=== PATIENT | male | born 1940 | race Caucasian/White ===

== ENCOUNTER 2016-11-07 02:31 | Emergency (ER) | payer MEDICARE ==
[2016-11-07 02:37] VITALS: TEMP 97.4
--- NOTE | 2016-11-07 02:49 | ED ---
Back Pain HPI - General Chief Complaint: Back Pain/Injury Stated Complaint: sciatica Time Seen by Provider: 11/07/16 02:41 Source: patient, RN notes reviewed Mode of arrival: ambulatory Limitations: no limitations - History of Present Illness Initial Comments: This a 75-year-old male presents emergency Department with chief complaint of low back pain. Patient states started a few days ago with no injury. Patient states his pain from his right low back and buttocks region that radiates down to his right ankle. He states he has no associated paresthesias or saddle anesthesias. Patient states pain is slightly worse with movement. Patient states he has no back history including injuries or surgeries. Patient states that he has no abdominal pain denies any nausea, vomiting, diarrhea or constipation. He also denies any bowel, bladder incontinence or retention. Patient has a history of diabetes, bladder cancer in which she states she is in remission. Patient states she has regular yearly follow-ups with no recurrence. Patient denies any fever, chills, dysuria, hematuria, history DVT, discoloration of his leg, leg swelling. - Related Data Home Medications Medication Instructions Recorded Confirmed Aspirin 81 mg PO DAILY 10/07/13 10/08/13 Timolol 0.5% Ophth Soln [Timoptic] 1 drop BOTH EYES BID 10/07/13 10/08/13 metFORMIN HCL [Glucophage Xr] 1,000 mg PO DAILY 10/07/13 10/08/13 Previous Rx's Medication Instructions Recorded Cyclobenzaprine [Flexeril] 10 mg PO TID PRN #15 tab 11/07/16 Hydrocodone/Acetaminophen [Upton 1 tab PO Q6HR PRN #20 tab 11/07/16 5-325] Allergies Allergy/AdvReac Type Severity Reaction Status Date / Time No Known Allergies Allergy Verified 11/07/16 02:37 Review of Systems ROS Statement: Those systems with pertinent positive or pertinent negative responses have been documented in the HPI. ROS Other: All systems not noted in ROS Statement are negative. Past Medical History Past Medical History: Cancer, Diabetes Mellitus Additional Past Medical History / Comment(s): BLADDER CANCER,DIVERTICULITIS History of Any Multi-Drug Resistant Organisms: None Reported Past Surgical History: No Surgical Hx Reported Additional Past Surgical History / Comment(s): COLONOSCOPY Past Anesthesia/Blood Transfusion Reactions: No Reported Reaction Past Psychological History: No Psychological Hx Reported Smoking Status: Former smoker General Exam Limitations: no limitations General appearance: alert, in no apparent distress Respiratory exam: Present: normal lung sounds bilaterally. Absent: respiratory distress, wheezes, rales, rhonchi, stridor Cardiovascular Exam: Present: regular rate, normal rhythm, normal heart sounds. Absent: systolic murmur, diastolic murmur, rubs, gallop, clicks GI/Abdominal exam: Present: soft, normal bowel sounds. Absent: distended, tenderness, guarding, rebound, rigid Extremities exam: Present: normal inspection, full ROM, normal capillary refill , other (Lower extremity strength equal bilaterally, neurovascular intact equal color Equal warmth there is no lower extremity swelling noted there is no tenderness with palpation the lower extremities). Absent: tenderness, pedal edema, joint swelling, calf tenderness Back exam: Present: normal inspection, full ROM (Mild discomfort with range of motion), tenderness (Right low lumbar region), paraspinal tenderness, other ( Pain with right straight leg raise). Absent: vertebral tenderness Neurological exam: Present: alert, oriented X3, CN II-XII intact, reflexes normal. Absent: motor sensory deficit Skin exam: Present: warm, dry, intact, normal color. Absent: rash Course Vital Signs 11/07/16 02:32 Temperature 97.4 F L Pulse Rate 89 Respiratory 20 Rate Blood Pressure 176/80 O2 Sat by Pulse 96 Oximetry Medical Decision Making - Medical Decision Making 75-year-old male presented emergency and for low back pain, right leg pain. Patient has symptoms of lumbar radiculopathy with no red flag symptoms. Patient 's lumbar x-ray does not reveal any osseus lesions though does show some anterior listhesis L4-L5 with degenerative changes. Patient symptoms are consistent for this. Patient will follow-up with Dr. Russo orthopedics surgeon. Patient will be given Flexeril and pain medication. We did discuss steroids so he is diabetic and will hold off at this time. Disposition Clinical Impression: Lumbar radiculopathy, acute Disposition: HOME SELF-CARE Condition: Stable Instructions: Lumbar Radiculopathy (ED), Lower Back Exercises (ED) Additional Instructions: Please return to the Emergency Department if symptoms worsen or any other concerns. Prescriptions: Cyclobenzaprine [Flexeril] 10 mg PO TID PRN #15 tab PRN Reason: Muscle Spasm Hydrocodone/Acetaminophen [Upton 5-325] 1 tab PO Q6HR PRN #20 tab PRN Reason: Pain Referrals: Tamir Snider DO [Primary Care Provider] - 1-2 days Lenny Timmons DO [Doctor of Osteopathic Medicine] - 1-2 days Time of Disposition: 03:43
--- NOTE | 2016-11-07 03:36 | XR ---
EXAM: XR Lumbar Spine, 4 or 5 Views CLINICAL HISTORY: Reason: Low back pain with pain all the way down the right leg to the right ankle. No injury. TECHNIQUE: Frontal, lateral and oblique views of the lumbar spine. COMPARISON: None FINDINGS: Bones/disc levels: No acute fracture or traumatic malalignment identified. Minimal is a degenerative grade 1 anterolisthesis of L4 on L5. Multilevel degenerative changes of the lumbar spine with multiple levels of bilateral neural foraminal stenoses. Soft tissues: Abdominal aortic calcifications. IMPRESSION: No acute fracture or traumatic malalignment identified. Multilevel degenerative changes of the lumbar spine with minimal grade 1 anterolisthesis of L4 on L5.
[2016-11-07] MEDS ORDERED: ACET/COD 300 MG/30 MG STARTER PACK 6 TAB BTL PO STA (03:43)
[2016-11-07] MEDS ORDERED: CYCLOBENZAPRINE 10MG STARTER 3 TAB BTL PO STA (03:43)
[2016-11-07 03:58] VITALS: BP 159/72; PULSE 79; RESP 16
== END 2016-11-07 03:58 | disposition home or self-care (01) ==
LOC: EC 02:31
DX: M47.26 Other spondylosis with radiculopathy, lumbar region (principal); M43.16 Spondylolisthesis, lumbar region; E11.9 Type 2 diabetes mellitus without complications; Z87.891 Personal history of nicotine dependence; Z79.82 Long term (current) use of aspirin; Z79.84 Long term (current) use of oral hypoglycemic drugs; Z79.899 Other long term (current) drug therapy
CPT/HCPCS: 72110; 99283

== ENCOUNTER → 2017-03-29 | Outpatient (CLI) | payer MEDICARE | END | disposition home or self-care (01) | LOC: LABPAT 12:34 | PROVIDERS: ATTEND Orthopaedic Surgery | DX: Z01.812 Encounter for preprocedural laboratory examination (principal) | CPT/HCPCS: 87070 ==

== ENCOUNTER 2017-04-01 05:59 | Inpatient (IN) | payer MEDICARE ==
[2017-03-21 12:35] VITALS: BMI 34.4
--- NOTE | 2017-03-31 14:36 | HP ---
HISTORY AND PHYSICAL REASON FOR ADMISSION: Surgery is scheduled for 04/01/2017 HISTORY OF PRESENT ILLNESS: Olvin Anaya is a 76-year-old patient seen with symptomatic left knee osteoarthritis. After having treatment options discussed, he elected to proceed with left total knee arthroplasty. Consent regarding the procedure was obtained. Medical clearance was provided Dr. Tamir Snider. PAST MEDICAL HISTORY: Insulin-dependent diabetes, hypertension, osteoarthritis. PAST SURGICAL HISTORY: Noncontributory. MEDICATIONS: Novolin, insulin, metformin, tramadol. ALLERGIES: TYLENOL 3 which causes vomiting. SOCIAL HISTORY: Patient denies current tobacco use. PHYSICAL EXAMINATION: Evaluation of the left knee range of motion is -3/4 to 115 degrees. There is tenderness along the medial joint line crepitus along the medial patellofemoral compartments with range of motion. Pain with patellofemoral compression. Ligaments are stable. Hip rotation is without pain. Distal neurovascular exam is intact. RADIOGRAPHS: Radiographs of the left knee reveal severe medial and moderate patellofemoral compartment osteoarthritis. IMPRESSION: 1. Left left knee osteoarthritis. 2. Insulin-dependent diabetes. 3. Hypertension. PLAN: Left total knee arthroplasty Surgery is scheduled for 04/01/2017. MMODL / IJN: [id number] /
[~2017-04-01 05:59] MED LIST: ACETAMINOPHEN TAB 500 MG TAB PO ONE; HYDROmorphone 0.5 MG/0.5 ML SYRINGE IVP PRN; LIDOCAINE 1% 20 ML VIAL (10MG/ML) FOR IV START INTRADERMA PRN; MELOXICAM 7.5 MG TAB PO ONE; MIDAZOLAM 2 MG/2 ML VIAL IV PRN; ONDANSETRON 4 MG/2 ML VIAL IVP ONE; TRANEXAMIC ACID 1,000 MG in SODIUM CHLORIDE 0.9% 100 ML IVPB ONE; ceFAZolin IN SWFI 2 GM/20 ML SYRINGE IVP ONE; fentaNYL (PF) 50 MCG/ML 20 ML VIAL IVP PRN
[2017-04-01 06:32] VITALS: RESP 16
[2017-04-01 06:34] LABS: Glucose,Whole Blood 144 mg/dL (75-99)
[2017-04-01] MEDS: LACTATED RINGERS 1,000 ML IV SCH (06:34)
[2017-04-01] MEDS ORDERED: DEXAMETHASONE SOD PHOS (MDV) 100 MG/10 ML VIAL IV ONE (06:34)
[2017-04-01] MEDS ORDERED: fentaNYL (PF) 50 MCG/ML 2 ML AMP ONE (07:30)
[2017-04-01] MEDS ORDERED: PROPOFOL 10 MG/ML 20 ML VIAL IV ONE (07:30)
[2017-04-01] MEDS ORDERED: TRANEXAMIC ACID 1,000 MG/10 ML VIAL ONE (07:30)
[2017-04-01] MEDS ORDERED: LIDOCAINE 1% INJ 10MG/ML (20 ML MDV) ONE (07:30)
[2017-04-01] MEDS ORDERED: SODIUM CHLORIDE 0.9% 100 ML BAG ONE (07:30)
[2017-04-01] MEDS ORDERED: PHENYLEPHRINE-0.9% NACL SYG 1 MG/10 ML SYRINGE ONE (07:30)
[2017-04-01] MEDS ORDERED: ROPIVACAINE 246.25 MG, EPINEPHrine 0.5 MG, KETOROLAC 30 MG, cloNIDine HCL/PF 80 MCG, WA... MISCELLANE ONE ×5 (07:32)
[2017-04-01] MEDS ORDERED: ROPIVACAINE 1,100 MG, SODIUM CHLORIDE 0.9% 330 ML MISCELLANE PRN ×2 (07:51)
--- NOTE | 2017-04-01 07:52 | P.ONQ ---
Anesthesiology Proc Note - PNB - Peripheral Nerve Block Performed Left Adductor Canal Infusion Time Out Performed: Yes Procedure Start Time: 07:10 Indication: Acute Post-Operative Pain, Analgesia Specifically requested for management of pain by DrWillem: Harish Elder Sedation Type: Sedate with meaningful contact maintained Preparation: Sterile Prep Position: Supine Catheter Depth at Skin (cm): 6 Catheter: Indwelling Needle Types: Other (see comment) (Pajunk) Needle Size: 100mm (4") Needle Gauge: 18 Technique: Ultrasound Injectate: 0.5% Ropivacaine (see comment for volume) (20cc) Blood Aspirated: No Pain Paresthesia on Injection Noted: No Resistance on Injection: Normal Events: Uneventful and Well Tolerated
[2017-04-01] MEDS ORDERED: LACTATED RINGERS 1,000 ML IV ONE (08:04)
[2017-04-01] MEDS ORDERED: ceFAZolin 3,000 MG in SODIUM CHLORIDE 0.9% IRRIGATIO 3,000 ML IRRIGATION ONE (08:05)
--- NOTE | 2017-04-01 09:29 | P.OP ---
Date of Procedure: 04/01/17 Preoperative Diagnosis: Left knee osteoarthritis Postoperative Diagnosis: Left knee osteoarthritis Procedure(s) Performed: Left total knee arthroplasty Implants: 1. Briana persona size 9 left standard cemented cruciate-retaining femur 2. Briana persona size G left cemented tibia 3. Briana persona 10 mm medial congruent polyethylene tibial insert 4. Briana persona 35 mm all polyethylene cemented patella Anesthesia: regional (Adductor canal catheter), local, spinal Surgeon: Harish Elder Pipe Stem Sawyer #1: Ramakrishna Quintanilla Estimated Blood Loss (ml): 50 Pathology: other (Bone) Condition: stable Disposition: PACU Indications for Procedure: 76-year-old patient seen with progressive symptomatic left knee osteoarthritis. After treatment options were discussed, he elected to proceed with total knee arthroplasty. Operative Findings: See description of procedure Description of Procedure: Patient was taken to the operative suite after having an adductor canal catheter placed by the department of anesthesia. Patient underwent a spinal anesthetic by the department of anesthesia. Patient was given preoperative IV intake antibiotics and TXA. A well-padded tourniquet was placed about the [] lower extremity. The lower extremity was then prepped and draped in the normal sterile orthopedic fashion. The extremity was elevated, a tourniquet was insufflated to 350. A standard anterior incision was made sharply through skin. Dissection was taken down through the subcutaneous soft tissues down to the extensor mechanism. A medial arthrotomy was performed, patella was everted and knee was flexed. There was advanced osteoarthritis noted. A proximal tibial cutting guide was positioned. Proximal tibial cut was made. A distal intramedullary femoral cutting guide was positioned, distal femoral cut made. We placed the appropriate sizing guide and selected the appropriate size. A distal 4-in-1 femoral cutting block was positioned, distal femoral cuts were made. We now placed a trial femoral component into position, along with an appropriate size tibial tray and insert. We now took the knee through range of motion and had full extension good flexion and good overall soft tissue balance noted. The patella was everted and a flush cut made with patellar quad tendon. We templated the patella, appropriate drill holes were made. An appropriate trial patella was positioned, knee was taken through full range of motion with the patella tracking very nicely. The trial patella was removed. Drill holes were made through the femoral component. All trial components were removed after marking off the appropriate rotation of the tibia. Retractors were now positioned along the proximal tibia. An appropriate keel punch was made with the appropriate size tibial guide. At this point appropriate size implants were chosen and opened. The joint was irrigated copiously with pulse lavage mechanical irrigation. The posterior capsule was infiltrated local analgesic. We mixed antibiotic methylmethacrylate. Once the methyl methacrylate was ready , the tibial component was cemented into place removing any excess methylmethacrylate. The femoral component was cemented into place removing the removing any excess methylmethacrylate. We then inserted the appropriate size polyethylene tibial insert. We made sure that it was locked into position. We took the knee into full extension, and then back in a flexion making sure we had removed any excess methylmethacrylate. The patellar component was then cemented down and secured with clamp. Excess methylmethacrylate removed. We kept the knee in full extension, patellar clamp in position until methylmethacrylate had hardened. Once it had hardened the patellar clamp was removed. The knee was taken through full range of motion. The patella tracked nicely. There was good soft tissue balancing. The tourniquet was now released. Additional hemostasis was achieved via electrocautery. A second gram of TXA was given. The wound was irrigated with pulse lavage mechanical irrigation. The superficial soft tissues were infiltrated with local analgesic. The extensor mechanism was repaired with Vicryl. We checked the repair with range of motion and it was stable. The subcutaneous soft tissues were repaired with Vicryl in layers. The skin was approximated with pernio/ Dermabond. Sterile dressings were applied followed by loose web roll and Bunny bandage. The patient was transferred to a bed, and taken to recovery in stable and satisfactory condition. Jc LONDONO assisted with the procedure.
[2017-04-01] MEDS ORDERED: NALOXONE 0.4 MG/ML 1 ML VIAL IV PRN (09:30)
[2017-04-01] MEDS ORDERED: ONDANSETRON 4 MG/2 ML VIAL IVP PRN (09:30)
[2017-04-01] MEDS ORDERED: HYDROmorphone 2 MG/ML 1 ML SYRINGE IVP PRN ×3 (09:30)
[2017-04-01] MEDS ORDERED: HYDROcodone/APAP 7.5-325MG 1 EACH TAB PO PRN ×2 (09:30)
[2017-04-01] MEDS ORDERED: hydrOXYzine PAMOATE 25 MG CAP PO PRN (09:30)
--- NOTE | 2017-04-01 09:58 | XR ---
EXAMINATION TYPE: XR knee limited LT DATE OF EXAM: 04/01/2017 COMPARISON: NONE TECHNIQUE: Two views submitted HISTORY: Post op FINDINGS: There is a prosthetic knee in near anatomic alignment. There is soft tissue edema and emphysema. Va scular calcification noted. Cortical thickening along the proximal tibia. IMPRESSION: 1. Postoperative change. Appears in near-anatomic alignment
[2017-04-01 10:18] LABS: Glucose,Whole Blood 176 mg/dL (75-99)
[2017-04-01 11:34] LABS: Glucose,Whole Blood 171 mg/dL (75-99)
--- NOTE | 2017-04-01 12:47 | P.CONS ---
History of Present Illness - Reason for Consult Consult date: 04/01/17 Medical management - Chief Complaint s/p left total knee arthroplasty - History of Present Illness 76-year-old male who underwent elective left total knee arthroplasty on 04/01/[address] Snider was consulted for medical management. The patient has a history of osteoarthritis, diabetes mellitus, and hypertension. The patient was seen and examined at the bedside postoperatively in the surgical unit. Spouse at bedside. He states he is not having any pain at this time. On-Q pain pump is intact and infusing. He is tolerating liquids without nausea or vomiting. He is waiting for his lunch at this time. He has not been out of bed yet, but states physical therapy is going to work with him after lunch. Incentive spirometer is at the bedside. patient encouraged to use 10 times an hour while awake. Patient able to pull 2500-3000cc. Vital signs remain stable. Review of Systems GENERAL: Patient denies fever. Denies chills. EYES: Denies blurred vision. Denies vision changes. Denies eye pain. EARS, NOSE, MOUTH, & THROAT: Denies headache. Denies sore throat. Denies ear pain. RESPIRATORY: Denies cough. Denies shortness of breath. Denies sputum production. Denies hemoptysis. CARDIOVASCULAR: Denies chest pain or pressure. Denies palpitations. Denies arrhythmias. GASTROINTESTINAL: Denies abdominal pain. Denies diarrhea. Denies constipation. Denies nausea. Denies vomiting. Denies heartburn. Denies blood in the stool. GENITOURINARY: Denies urinary frequency. Denies burning. Denies dysuria. Denies cloudy urine. Denies blood in the urine. MUSCULOSKELETAL: Positive for osteoarthritis of left knee. Denies myalgias. Denies joint swelling. Denies decreased range of motion beyond patients baseline. INTEGUMENTARY: Denies pruitis. Denies rash. PSYCHIATRIC: Denies suicidal or homicial ideations. ENDOCRINE: Denies weight change. Denies polydipsia. Denies polyuria. HEMATOLOGIC: Denies bleeding disorders. Past Medical History Past Medical History: Cancer, Diabetes Mellitus, Eye Disorder, Osteoarthritis ( OA) Additional Past Medical History / Comment(s): BLADDER CANCER,DIVERTICULITIS. GLAUCOMA BILAT EYES History of Any Multi-Drug Resistant Organisms: None Reported Past Surgical History: Cholecystectomy Additional Past Surgical History / Comment(s): COLONOSCOPY Past Anesthesia/Blood Transfusion Reactions: No Reported Reaction Smoking Status: Former smoker - Past Family History Brother(s) Family Medical History: Cancer Additional Family Medical History / Comment(s): 2 BROTHERS WITH CANCER Medications and Allergies Home Medications Medication Instructions Recorded Confirmed Type Aspirin 81 mg PO DAILY 10/07/13 04/01/17 History Timolol 0.5% Ophth Soln [Timoptic] 1 drop BOTH EYES BID 10/07/13 04/01/17 History metFORMIN HCL [Glucophage Xr] 1,000 mg PO DAILY 10/07/13 04/01/17 History Insulin Glargine,Hum.rec.anlog 20 unit SQ HS 03/21/17 04/01/17 History [Basaglar Kwikpen U-100] Magnesium Oxide [Mag-Ox] 400 mg PO DAILY 03/21/17 04/01/17 History traMADol HCL [Ultram] 50 mg PO Q6HR PRN 03/21/17 04/01/17 History Allergies Allergy/AdvReac Type Severity Reaction Status Date / Time No Known Allergies Allergy Verified 04/01/17 12:28 Physical Exam Vitals: Vital Signs Temp Pulse Pulse Resp BP BP Pulse Ox 04/01/17 10:17 80 16 120/64 97 04/01/17 10:02 83 16 117/60 95 04/01/17 09:47 81 16 113/59 95 04/01/17 09:32 97.7 F 76 16 101/59 98 04/01/17 06:15 97.0 F L 89 16 156/75 97 Intake and Output 03/31/17 04/01/17 04/01/17 22:59 06:59 14:59 Intake Total 400 701 Output Total 50 Balance 400 651 Intake: IV 400 701 Output: Estimated Blood Loss 50 GENERAL: This is a 76-year-old male in no apparent distress at the time of examination. Pleasant and cooperative. HEENT: Head is atraumatic, normocephalic. Pupils are equal, round, and reactive to light. Sclerae anicteric. Conjunctivae are clear. Mucus membranes of the mouth are moist. Neck is supple. RESPIRATORY: Clear to ausculation. No wheezes, rales, or rhonchi. No use of accessory muscles. Patient maintaining oxygen saturation greater than 92% on room air. No chest wall tenderness is noted on palpation or with deep breathing. CARDIOVASCULAR: Regular rate and rhythm. S1 and S2 noted. No systolic or diastolic murmur auscultated. No JVD noted. No S3 or S4 noted. GASTROINTESTINAL: No distention noted. Abdomen soft and round. Normal active bowel sounds auscultated X 4 quadrants. No pain or tenderness noted upon palpation. INTEGUMENTARY: Dressing to left knee clean dry and intact. No drainage noted. No cyanosis. No jaundice. No rashes noted. No cellulitis noted. EXTREMITIES: On-Q pain pump noted to left upper thigh. 2+ peripheral pulses. No evidence of peripheral edema. No calf tenderness noted. NEUROLOGIC: Cranial nerves II-XII intact. PSYCHIATRIC: Awake, alert, and oriented X 3. Appropriate affect. Intact judgement and insight. Results Labs: Abnormal Lab Results - Last 24 Hours (Table) 04/01/17 04/01/17 04/01/17 Range/Units 06:27 10:15 11:25 POC Glucose (mg/dL) 144 H 176 H 171 H (75-99) mg/dL Assessment and Plan Plan: ASSESSMENT: Osteoarthritis, s/p left total knee arthroplasty on 04/01/2017 Diabetes mellitus, type II, hemoglobin A1c pending History of diverticulitis History of glaucoma Obesity: BMI 34.5 Remote history of nicotine dependence, patient quit smoking cigarettes in 1986 PLAN: -Continue postoperative surgical care per Dr. Elder -Home meds as appropriate -Obtain hemoglobin A1c -Capillary blood glucose Accu-Cheks before meals and at bedtime -NovoLog sliding scale coverage before meals and at bedtime -Begin Levemir 20 units at bedtime -Activity as tolerated -Physical therapy -Pain control -Incentive spirometer 10 times an hour while awake -Monitor labs -GI prophylaxis: Pepcid 20 mg by mouth daily -DVT prophylaxis: Lovenox 30 mg subcu every 12 hours -Monitor vital signs and address as appropriate -Discharge planning: Patient to return home when stable with home care -Further recommendations pending patient's course Nurse practitioner note has been reviewed by physician. Signing provider agrees with the documented findings, assessment, and plan of care.
[2017-04-01] MEDS: traMADol 50 MG TAB PO SCH ×3 (13:55→21:32)
[2017-04-01] MEDS: INSULIN ASPART 100 UNIT/ML 1 ML 10 ML VIAL SQ SCH ×3 (13:55→20:20)
[2017-04-01] MEDS: SODIUM CHLORIDE 0.9% 1,000 ML IV SCH (13:57)
[2017-04-01] MEDS: ceFAZolin IN SWFI 2 GM/20 ML SYRINGE IVP SCH (13:58)
[2017-04-01 16:49] LABS: Glucose,Whole Blood 241 mg/dL (75-99)
[2017-04-01 20:19] LABS: Glucose,Whole Blood 239 mg/dL (75-99)
[2017-04-01] MEDS: TIMOLOL 0.5% OPHTH DROPS 5 ML BTL BOTH EYES SCH (20:20)
[2017-04-01] MEDS: ENOXAPARIN 30 MG/0.3 ML SYRINGE SQ SCH (20:43)
[2017-04-01] MEDS ORDERED: SENNOSIDES-DOCUSATE SODIUM 1 EACH TAB PO SCH (21:00)
[2017-04-01] MEDS ORDERED: INSULIN DETEMIR 100 UNIT/ML 10 ML VIAL SQ SCH (21:00)
[2017-04-02] MEDS: ceFAZolin IN SWFI 2 GM/20 ML SYRINGE IVP SCH (00:05)
[2017-04-02] MEDS: LACTATED RINGERS 1,000 ML IV SCH (06:05)
[2017-04-02] MEDS: SODIUM CHLORIDE 0.9% 1,000 ML IV SCH (06:05)
[2017-04-02 06:58] LABS: Glucose,Whole Blood 143 mg/dL (75-99)
[2017-04-02 07:47] LABS: Basophils % (A) 0 %; Eosinophils # (A) 0.1 k/uL (0-0.7); Eosinophils % (A) 1 %; HCT 39.9 % (39.0-53.0); HGB 13.2 gm/dL (13.0-17.5); Lymphocytes # (A) 1.6 k/uL (1.0-4.8); Lymphocytes % (A) 12 %; MCH 29.7 pg (25.0-35.0); MCHC 33.2 g/dL (31.0-37.0); MCV 89.4 fL (80.0-100.0); Mean Platelet Volume 8.8; Monocytes # (A) 0.9 k/uL (0-1.0); Monocytes % (A) 7 %; Neutrophils # (A) 9.7 k/uL (1.3-7.7); Neutrophils % (A) 78 %; Platelet Count 149 k/uL (150-450); RBC 4.46 m/uL (4.30-5.90); RDW 14.5 % (11.5-15.5); WBC 12.5 k/uL (3.8-10.6)
[2017-04-02] MEDS: INSULIN ASPART 100 UNIT/ML 1 ML 10 ML VIAL SQ SCH ×2 (08:04→13:00)
[2017-04-02] MEDS: ENOXAPARIN 30 MG/0.3 ML SYRINGE SQ SCH (08:04)
[2017-04-02] MEDS: traMADol 50 MG TAB PO SCH ×2 (08:06→13:00)
[2017-04-02] MEDS: TIMOLOL 0.5% OPHTH DROPS 5 ML BTL BOTH EYES SCH (08:15)
[2017-04-02 08:24] LABS: ALT 50 U/L (21-72); AST 25 U/L (17-59); Albumin 3.6 g/dL (3.5-5.0); Alkaline Phosphatase 34 U/L (38-126); Anion Gap 9 mmol/L; Blood Urea Nitrogen 18 mg/dL (9-20); Calcium 9.4 mg/dL (8.4-10.2); Carbon Dioxide 27 mmol/L (22-30); Chloride 103 mmol/L (98-107); Glucose 143 mg/dL (74-99); Potassium 4.4 mmol/L (3.5-5.1); Sodium 139 mmol/L (137-145); Total Bilirubin 0.6 mg/dL (0.2-1.3); Total Protein 6.1 g/dL (6.3-8.2)
[2017-04-02] MEDS ORDERED: MAGNESIUM OXIDE 400 MG TAB PO SCH (09:00)
[2017-04-02] MEDS ORDERED: FAMOTIDINE 20 MG TAB PO SCH (09:00)
[2017-04-02] MEDS ORDERED: MELOXICAM 7.5 MG TAB PO SCH (09:00)
[2017-04-02] MEDS ORDERED: metFORMIN 500 MG TAB PO SCH (09:00)
--- NOTE | 2017-04-02 09:17 | P.PN ---
Progress Note - Text Anesthesia POD 1. Patient is status post left TKR under spinal anesthesia with a left adductor canal catheter placed for postoperative pain relief. With ropivacaine 0.2% running at 8 cc's per hour, the patient's VAS is (0, 4). Catheter site is clean dry and intact.
[2017-04-02 09:21] VITALS: TEMP 97.7
--- NOTE | 2017-04-02 10:15 | P.PN ---
Subjective Progress Note Date: 04/02/17 76-year-old male who underwent elective left total knee arthroplasty on 04/01/[address] Snider was consulted for medical management. The patient has a history of osteoarthritis, diabetes mellitus, and hypertension. 04/01/2017 The patient was seen and examined at the bedside postoperatively in the surgical unit. Spouse at bedside. He states he is not having any pain at this time. On-Q pain pump is intact and infusing. He is tolerating liquids without nausea or vomiting. He is waiting for his lunch at this time. He has not been out of bed yet, but states physical therapy is going to work with him after lunch. Incentive spirometer is at the bedside. patient encouraged to use 10 times an hour while awake. Patient able to pull 2500-3000cc. Vital signs remain stable. 04/02/2017 Patient seen and examined on rounds with Dr. Snider. Patient states he is having pain at surgical site but states it is tolerable at this time. Patient continues to use incentive spirometer 10 times hour while awake and is pulling 2500 mL. He has been ambulating in the hallways several times. He is tolerating by mouth intake without nausea or vomiting. Surgical dressing is clean dry and intact. He is anticipating discharge home this afternoon. Objective - Vital Signs Vital signs: Vital Signs Temp 97.7 F 04/02/17 07:00 Pulse 65 04/02/17 07:00 Resp 16 04/02/17 07:00 BP 175/81 04/02/17 07:00 Pulse Ox 98 04/02/17 07:00 Intake & Output 04/01/17 04/02/17 04/02/17 18:59 06:59 18:59 Intake Total 701 650 Output Total 50 425 Balance 651 225 Intake: IV 701 Intake, IV Titration 150 Amount Sodium Chloride 0.9% 1, 150 000 ml @ 50 mls/hr IV . Q20H [facility] Rx#:[id number] Oral 500 Output: Urine 425 Estimated Blood Loss 50 Other: Voiding Method Toilet # Voids 1 3 - Exam GENERAL: This is a 76-year-old male in no apparent distress at the time of examination. Pleasant and cooperative. HEENT: Head is atraumatic, normocephalic. Pupils are equal, round, and reactive to light. Sclerae anicteric. Conjunctivae are clear. Mucus membranes of the mouth are moist. Neck is supple. RESPIRATORY: Clear to ausculation. No wheezes, rales, or rhonchi. No use of accessory muscles. Patient maintaining oxygen saturation greater than 92% on room air. No chest wall tenderness is noted on palpation or with deep breathing. CARDIOVASCULAR: Regular rate and rhythm. S1 and S2 noted. No systolic or diastolic murmur auscultated. No JVD noted. No S3 or S4 noted. GASTROINTESTINAL: No distention noted. Abdomen soft and round. Normal active bowel sounds auscultated X 4 quadrants. No pain or tenderness noted upon palpation. INTEGUMENTARY: Dressing to left knee clean dry and intact. No drainage noted. No cyanosis. No jaundice. No rashes noted. No cellulitis noted. EXTREMITIES: On-Q pain pump noted to left upper thigh. 2+ peripheral pulses. No evidence of peripheral edema. No calf tenderness noted. NEUROLOGIC: Cranial nerves II-XII intact. PSYCHIATRIC: Awake, alert, and oriented X 3. Appropriate affect. Intact judgement and insight. - Labs CBC & Chem 7: 04/02/17 07:20 04/02/17 07:20 Labs: Abnormal Lab Results - Last 24 Hours (Table) 04/01/17 04/01/17 04/01/17 Range/Units 10:15 11:25 16:37 WBC (3.8-10.6) k/uL Plt Count (150-450) k/uL Neutrophils # (1.3-7.7) k/uL Glucose (74-99) mg/dL POC Glucose (mg/dL) 176 H 171 H 241 H (75-99) mg/dL Alkaline Phosphatase (38-126) U/L Total Protein (6.3-8.2) g/dL 04/01/17 04/02/17 04/02/17 Range/Units 20:14 06:51 07:20 WBC 12.5 H (3.8-10.6) k/uL Plt Count 149 L (150-450) k/uL Neutrophils # 9.7 H (1.3-7.7) k/uL Glucose (74-99) mg/dL POC Glucose (mg/dL) 239 H 143 H (75-99) mg/dL Alkaline Phosphatase (38-126) U/L Total Protein (6.3-8.2) g/dL 04/02/17 Range/Units 07:20 WBC (3.8-10.6) k/uL Plt Count (150-450) k/uL Neutrophils # (1.3-7.7) k/uL Glucose 143 H (74-99) mg/dL POC Glucose (mg/dL) (75-99) mg/dL Alkaline Phosphatase 34 L (38-126) U/L Total Protein 6.1 L (6.3-8.2) g/dL Assessment and Plan Plan: ASSESSMENT: Osteoarthritis, s/p left total knee arthroplasty, POD #1 Diabetes mellitus, type II, hemoglobin A1c pending History of diverticulitis History of glaucoma Obesity: BMI 34.5 Remote history of nicotine dependence, patient quit smoking cigarettes in 1986 PLAN: -Continue postoperative surgical care per Dr. Elder -Home meds as appropriate -Capillary blood glucose Accu-Cheks before meals and at bedtime -NovoLog sliding scale coverage before meals and at bedtime -Continue Levemir 20 units at bedtime -Activity as tolerated -Physical therapy -Pain control -Incentive spirometer 10 times an hour while awake -Monitor labs -GI prophylaxis: Pepcid 20 mg by mouth daily -DVT prophylaxis: Lovenox 30 mg subcu every 12 hours -Monitor vital signs and address as appropriate -Discharge planning: Patient to return home when stable with home care -Further recommendations pending patient's course -Patient is cleared for discharge from a medical standpoint when cleared by orthopedics Nurse practitioner note has been reviewed by physician. Signing provider agrees with the documented findings, assessment, and plan of care.
[2017-04-02 10:39] VITALS: PULSE 82
[2017-04-02 11:38] LABS: Glucose,Whole Blood 170 mg/dL (75-99)
[2017-04-02 12:00] VITALS: BP 127/71
[2017-04-02] MEDS ORDERED: MULTIVITAMINS, THERA 1 EACH TAB PO SCH (12:00)
--- NOTE | 2017-04-02 13:11 | P.PN ---
Subjective Progress Note Date: 04/02/17 Principal diagnosis: Status post left total knee arthroplasty Patient is seen today resting in his hospital bed, his is present. Patient 's doing very well, he is done well with therapy. He is urinating on his own. He denies any headaches, lightheadedness, chest pain or shortness of breath. Objective - Vital Signs Vital signs: Vital Signs Temp 97.7 F 04/02/17 07:00 Pulse 82 04/02/17 08:00 Resp 16 04/02/17 07:00 BP 127/71 04/02/17 12:00 Pulse Ox 98 04/02/17 07:00 Intake & Output 04/01/17 04/02/17 04/02/17 18:59 06:59 18:59 Intake Total 701 650 Output Total 50 425 Balance 651 225 Intake: IV 701 Intake, IV Titration 150 Amount Sodium Chloride 0.9% 1, 150 000 ml @ 50 mls/hr IV . Q20H [facility] Rx#:[id number] Oral 500 Output: Urine 425 Estimated Blood Loss 50 Other: Voiding Method Toilet Toilet # Voids 1 3 - Exam Left lower extremity: Incision is clean, dry, and intact. The prineo tape is in good condition. There is minimal soft tissue swelling and ecchymosis surrounding the medial and lateral aspects of the incision. Calf is soft, no tenderness with palpation. Plantar flexion, dorsiflexion, EHL, FHL are intact. Sensory exam to light touch throughout the extremity is intact, dorsal pedis pulses 2+. - Labs CBC & Chem 7: 04/02/17 07:20 04/02/17 07:20 Labs: Abnormal Lab Results - Last 24 Hours (Table) 04/01/17 04/01/17 04/02/17 Range/Units 16:37 20:14 06:51 WBC (3.8-10.6) k/uL Plt Count (150-450) k/uL Neutrophils # (1.3-7.7) k/uL Glucose (74-99) mg/dL POC Glucose (mg/dL) 241 H 239 H 143 H (75-99) mg/dL Alkaline Phosphatase (38-126) U/L Total Protein (6.3-8.2) g/dL 04/02/17 04/02/17 04/02/17 Range/Units 07:20 07:20 11:34 WBC 12.5 H (3.8-10.6) k/uL Plt Count 149 L (150-450) k/uL Neutrophils # 9.7 H (1.3-7.7) k/uL Glucose 143 H (74-99) mg/dL POC Glucose (mg/dL) 170 H (75-99) mg/dL Alkaline Phosphatase 34 L (38-126) U/L Total Protein 6.1 L (6.3-8.2) g/dL Assessment and Plan Plan: Assessment: 1. Postop day 1 status post left total knee arthroplasty Plan: 1. Pain control, discharged home on oral medication 2. GI and DVT prophylaxis, we'll discharge home on aspirin 325 mg twice a day 3. Wound care instructions discussed 4. Encourage incentive spirometer 5. Home physical therapy and nursing, CPM at home 6. Medical recommendations 7. Discharge planning: Patient will be discharged home today Time with Patient: Less than 30
--- NOTE | 2017-04-02 13:13 | P.DS ---
Providers Date of admission: 04/01/17 05:59 Expected date of discharge: 04/02/17 Attending physician: Harish Elder Consults: 04/01/17 09:30 Consult Physician Routine Consulting Provider: Tamir Snider Reason/Comments: Medical management Do you want consulting provider notified?: Yes Primary care physician: Tamir Snider [facility] Course: Date of admission: 04/01/2017 Date of discharge: 04/02/2017 Admission diagnosis: Status post left total knee arthroplasty Discharge diagnosis: Same Attending physician: Dr. Elder Surgical procedures: Left total knee arthroplasty Brief history: Patient is a 76-year-old male with a history of progressive primary left knee osteoarthritis. At this point patient has failed conservative treatment measures and has opted to proceed with a elective left total knee arthroplasty. Hospital course: Details of patient's surgery can be found in operative report. Patient tolerated the procedure well and was subsequently transported to orthopedic floor. Patient's orthopeidc and medical care was provided daily. Patient had daily laboratory tests performed for evaluation of overall blood counts. Patient had daily physical therapy to include strengthening range of motion as well as education with walker ambulation. Patient had daily CPM usage as part of their physical therapy program. Patient was treated with Lovenox for their postoperative DVT prophylaxis during their inpatient stay. Patient was noted to have a relatively uneventful postoperative course. Patient reported satisfactory pain control with oral pain medications by postoperative day 0. Patient showed satisfactory progress with physical therapy. Patient moved steadily through the program and had no difficulty meeting the goals by postoperative day 1. Given patient's otherwise satisfactory course and having met physical therapy goals, plan is to discharge patient home on postoperative day 1. Discharge condition/disposition: Patient will be discharged home in stable condition. Discharge medications: Instructions are given on resumption of patient's normal daily medications per primary care recommendation, in addition patient will be prescribed Baird 7.5 mg/325 mg, Colace 100 mg, aspirin 325 mg. Discharge instructions: 1. Wound care and infection precautions, keep incision dry and covered while showering], no lotions, creams, moisturizers. No soaking, tubs, pools, hottubs. Do not scrub over the incision. 2. Weight-bear [as tolerated] with walker / cane until follow-up. 3. Ice and elevate when necessary. Do not exceed 20 minutes per hour with ice pack. 4. Utilize compression sleeve until seen at first follow up appointment. 5. Visiting nursing care. 6. Home physical therapy [including home CPM]. 7. Pain meds and anticoagulants per prescription. 8. Pain medication has potential to cause constipation. Increase oral fluid and fiber intake. Contact primary care provider if you have not had a bowel movement within 48 hours after discharge 9. No anti-inflammatory medication until discussed at first post operative visit, this including Motrin, Aleve, Mobic, Diclofenac. 10. Follow up in office at 2 weeks postop with Jc Quintanilla PA-C 11. Follow up with your primary care doctor 7-10 days after discharge. 12. Contact [facility] with any questions, . Procedures: Left total knee arthroplasty Patient Condition at Discharge: Good Plan - Discharge Summary Discharge Rx Participant: Yes New Discharge Prescriptions: New Aspirin 325 mg PO BID #60 tab Docusate [Colace] 100 mg PO DAILY #30 capsule HYDROcodone/APAP 7.5-325MG [Baird 7.5] 1 - 2 each PO Q6HR PRN #40 tab PRN Reason: Pain Continue Timolol 0.5% Ophth Soln [Timoptic 0.5% Ophth Soln] 1 drop BOTH EYES BID metFORMIN HCL [Glucophage Xr] 1,000 mg PO DAILY Magnesium Oxide [Mag-Ox] 400 mg PO DAILY Insulin Glargine,Hum.rec.anlog [Basaglar Kwikpen U-100] 20 unit SQ HS No Action traMADol HCL [Ultram] 50 mg PO Q6HR PRN PRN Reason: Pain Discharge Medication List Timolol 0.5% Ophth Soln [Timoptic 0.5% Ophth Soln] 1 drop BOTH EYES BID [History] metFORMIN HCL [Glucophage Xr] 1,000 mg PO DAILY 10/07/13 [History] Insulin Glargine,Hum.rec.anlog [Basaglar Kwikpen U-100] 20 unit SQ HS 03/21/17 [ History] Magnesium Oxide [Mag-Ox] 400 mg PO DAILY 03/21/17 [History] traMADol HCL [Ultram] 50 mg PO Q6HR PRN 03/21/17 [History] Aspirin 325 mg PO BID #60 tab 04/02/17 [Rx] Docusate [Colace] 100 mg PO DAILY #30 capsule 04/02/17 [Rx] HYDROcodone/APAP 7.5-325MG [Baird 7.5] 1 - 2 each PO Q6HR PRN #40 tab 04/02/17 [ Rx] Follow up Appointment(s)/Referral(s): Tamir Snider DO [Primary Care Provider] - 2 Weeks Ramakrishna Quintanilla, PAC [PHYSICIAN [employer]] - 04/17/17 2:10 pm Patient Instructions/Handouts: *Surgery [facility] - On-Q Pain Pump Discharge Instructions, Knee Replacement (DC) Activity/Diet/Wound Care/Special Instructions: [facility] - [phone] [facility]- call when home to set up delivery for CPM -[phone] Orthopedic Discharge Instructions: 1. Wound care and infection precautions, keep incision dry and covered while showering, no lotions, creams, moisturizers. No soaking, pools, hot tubs. Do not scrub over incision. 2. Weight-bear as tolerated with walker / cane until follow-up. 3. Ice and elevate when necessary. Do not exceed 20 minutes per hour with ice pack. 4. Utilize compression sleeve until seen at first follow up appointment. 5. Visiting nursing care. 6. Home physical therapy including home CPM. 7. Pain meds and anticoagulants per prescription. 8. Pain medication has potential to cause constipation. Increase oral fluid and fiber intake. Contact primary care provider if you have not had a bowel movement within 48 hours after discharge. 9. No anti-inflammatory medication until discussed at first post operative visit, this including Motrin, Aleve, Mobic, Diclofenac. 10. Follow up in office at 2 weeks postop with Jc Quintanilla PA-C 11. Follow up with your primary care doctor 7-10 days after discharge. 12. Contact [facility] with any questions, . Discharge Disposition: HOME WITH HOME HEALTH SERVICES
[2017-04-02 16:56] LABS: Hemoglobin A1C 7.8 % (4.0-6.0)
== END 2017-04-02 15:05 | disposition home health service (06) | DRG 470 ==
LOC: 2ORMAIN 05:59 → 3SUR 09:41
PROVIDERS: ADMIT Orthopaedic Surgery; ATTEND Orthopaedic Surgery
PROC: 0SRD0J9 Replacement of Left Knee Joint with Synthetic Substitute, Cemented, Open Approach (ICD-10-PCS; principal; 2017-04-01 07:30)
DX: M17.12 Unilateral primary osteoarthritis, left knee (principal); E11.9 Type 2 diabetes mellitus without complications; E66.9 Obesity, unspecified; H40.9 Unspecified glaucoma; I10 Essential (primary) hypertension; Z79.4 Long term (current) use of insulin; Z79.82 Long term (current) use of aspirin; Z85.51 Personal history of malignant neoplasm of bladder; Z87.891 Personal history of nicotine dependence; Z88.5 Allergy status to narcotic agent; Z79.899 Other long term (current) drug therapy
CPT/HCPCS: 80053; 83036; 85025; 87070; 88305; 88311

== ENCOUNTER 2019-09-08 08:08 | Day surgery (SDC) | payer MEDICARE ==
[2019-09-07 12:00] VITALS: BMI 34.4
[2019-09-08 08:25] VITALS: RESP 16; TEMP 96.8
[2019-09-08 08:30] LABS: Glucose,Whole Blood 188 mg/dL (75-99)
[2019-09-08] MEDS ORDERED: LACTATED RINGERS 1,000 ML IV ONE (08:30)
[2019-09-08] MEDS ORDERED: PROPOFOL 10 MG/ML 20 ML VIAL IV ONE (08:49)
--- NOTE | 2019-09-08 08:53 | P.GSHP ---
History of Present Illness H&P Date: 09/08/19 Chief Complaint: Colon cancer screening 78-year-old male here today for colonoscopy. Last colonoscopy 6-7 years ago. History of polyps. Does not know what kind. No bowel related complaints. No family history of colon cancer. Past Medical History Past Medical History: Cancer, Diabetes Mellitus, Eye Disorder, Osteoarthritis (OA) Additional Past Medical History / Comment(s): BLADDER CANCER,DIVERTICULITIS,. GLAUCOMA BILAT EYES History of Any Multi-Drug Resistant Organisms: None Reported Past Surgical History: Cholecystectomy, Joint Replacement Additional Past Surgical History / Comment(s): COLONOSCOPY, left knee, "spot of bladder ca burned" Past Anesthesia/Blood Transfusion Reactions: No Reported Reaction Smoking Status: Former smoker - Past Family History Brother(s) Family Medical History: Cancer Additional Family Medical History / Comment(s): 2 BROTHERS WITH CANCER Medications and Allergies Home Medications Medication Instructions Recorded Confirmed Type Timolol 0.5% Ophth Soln [Timoptic 1 drop BOTH EYES BID 10/07/13 09/08/19 History 0.5% Ophth Soln] metFORMIN HCL [Glucophage Xr] 1,000 mg PO BID 10/07/13 09/08/19 History Insulin NPH Human Isophane 20 unit SQ BID 09/04/19 09/08/19 History [humuLIN N Kwikpen] Allergies Allergy/AdvReac Type Severity Reaction Status Date / Time No Known Allergies Allergy Verified 09/08/19 08:21 Surgical - Exam Vital Signs Temp Pulse Resp BP Pulse Ox 96.8 F L 73 16 150/66 96 09/08/19 08:21 09/08/19 08:21 09/08/19 08:21 09/08/19 08:21 09/08/19 08:21 Physical exam: General: Well-developed, well-nourished HEENT: Normocephalic, sclerae nonicteric Abdomen: Nontender, nondistended Extremities: No edema Neuro: Alert and oriented Results - Labs Abnormal Lab Results - Last 24 Hours (Table) 09/08/19 Range/Units 08:27 POC Glucose (mg/dL) 188 H (75-99) mg/dL Assessment and Plan (1) Colon cancer screening Narrative/Plan: Proceed with colonoscopy at this time. Current Visit: Yes Status: Acute Code(s): Z12.11 - ENCOUNTER FOR SCREENING FOR MALIGNANT NEOPLASM OF COLON SNOMED Code(s): 518401106
--- NOTE | 2019-09-08 09:15 | P.PCN ---
Date of Procedure: 09/08/19 Procedure(s) Performed: PREOPERATIVE DIAGNOSIS: Colon cancer screening, history of polyps POSTOPERATIVE DIAGNOSIS: Normal examination PROCEDURE: Colonoscopy ANESTHESIA: MAC SURGEON: Eduardo Hernandez M.D. SPECIMENS: None ENDOSCOPIC PROCEDURE: The patient was placed on the endoscopy table in the left decubitus position. The Olympus colonoscope was inserted into the anus and passed under direct visualization to the proximal ascending colon. I could visualize the cecum from a distance. I could not visualize the base of the cecum. Multiple attempts and body position changes were tried in order to reach more proximal and these were unsuccessful. The visualized cecum, ascending, transverse, descending, sigmoid and rectum. There was no visible diverticulosis noted. Digital rectal examination was normal. The patient was taken to the recovery room in stable condition per anesthesia guidelines. RECOMMENDATIONS: Increase fiber. Follow-up colonoscopy 5 years.
[2019-09-08 09:31] VITALS: BP 127/79; PULSE 73
== END 2019-09-08 09:58 | disposition home or self-care (01) ==
LOC: ORWHC2ENDO 08:08
PROVIDERS: ATTEND Surgery
DX: Z12.11 Encounter for screening for malignant neoplasm of colon (principal); Z86.010 Personal history of colon polyps; Z87.891 Personal history of nicotine dependence; E11.9 Type 2 diabetes mellitus without complications; M19.90 Unspecified osteoarthritis, unspecified site; Z85.51 Personal history of malignant neoplasm of bladder; H40.9 Unspecified glaucoma; Z87.19 Personal history of other diseases of the digestive system; Z90.49 Acquired absence of other specified parts of digestive tract; Z96.652 Presence of left artificial knee joint; Z97.2 Presence of dental prosthetic device (complete) (partial); Z80.9 Family history of malignant neoplasm, unspecified; Z79.4 Long term (current) use of insulin; Z79.899 Other long term (current) drug therapy
CPT/HCPCS: J2704; G0105; 45378

== ENCOUNTER → 2020-05-04 | Outpatient (CLI) | payer MEDICARE ==
--- NOTE | 2020-05-04 12:27 | MR ---
EXAMINATION TYPE: MR lumbar spine wo con DATE OF EXAM: 05/04/2020 COMPARISON: Lumbar spine x-ray November 07, 2016 HISTORY: Low back pain TECHNIQUE: Multiplanar, multisequence imaging of the lumbar spine is performed without IV contrast. FINDINGS: Sagittal images of the lumbar spine show vertebral body heights to remain satisfactory. Sli ght grade 1 retrolisthesis L2 on L3 and grade 1 anterolisthesis L4 and L5. Multilevel disc desiccatio n. Mild to moderate disc space narrowing with heterogeneous ordered type I endplate changes and moder ate to advanced anterior spurring L2-L3 level. Vacuum disc phenomenon noted L3-L4 and L4-L5 levels.. The conus medullaris is normal in position and signal ending inferior T12 level. There is additional moderate multilevel anterior spurring Axial images show T12-L1 and L1-L2 levels to appear within normal limits. Axial images at L2-L3 level show mild to moderate facet degenerative changes bilaterally. There is sp ondylolisthesis with moderate to advanced broad disc bulge and has left paracentral/foraminal disc pr otrusion component effacing anterolateral thecal sac and left lateral recess. Findings noted on axial image 17. There is jerb-ox-sesigfcy left-sided inferior and right-sided inferior neural foraminal na rrowing. Axial images at L3-L4 level mild/moderate facet degenerative changes bilaterally. There is moderate b road disc bulge with right lateral disc protrusion component. There is effacement of the anterior and posterior lateral thecal sac. There is mild to moderate right-sided anterior inferior neural foramin al narrowing. Axial images at L4-L5 level shows moderate to advanced facet degenerative changes and ligamentum flav um hypertrophy. There is pijg-cn-ungabhdx broad disc bulge with central disc protrusion component. Th ere is mild to moderate right and mild left-sided neural foraminal narrowing. Axial images at the L5-S1 level show [id number]-rq-[id number] facet degenerative changes bilaterally. There i s tiny central disc protrusion. Spinal canal is preserved. The bilateral neural foramina are patent. Cortical thinning in visualized portion of both kidneys is present. Paraspinal muscle bulk is preserv ed IMPRESSION: Multilevel spondylolisthesis and degenerative changes in the lumbar spine as detailed abo ve greatest at L2-L3 through the L4-L5 levels.
== END | disposition home or self-care (01) ==
LOC: RADMRIMAIN 11:03
PROVIDERS: ATTEND Orthopaedic Surgery
DX: M43.16 Spondylolisthesis, lumbar region (principal); M47.816 Spondylosis without myelopathy or radiculopathy, lumbar region
CPT/HCPCS: 72148

== ENCOUNTER → 2023-12-17 | Outpatient (CLI) | payer MEDICARE ==
[2023-12-17 16:42] LABS: ALT 47 U/L (10-49); AST 35 U/L (14-35); Albumin/Globulin Ratio 1.74 Ratio (1.60-3.17); Alkaline Phosphatase 66 U/L (41-126); BUN/Creat Ratio 20.31 Ratio (12.00-20.00); Blood Urea Nitrogen 26.4 mg/dL (9.0-27.0); Calcium 8.7 mg/dL (8.7-10.3); Carbon Dioxide 23.9 mmol/L (21.6-31.8); Chloride 108 mmol/L (96-109); Chol/HDL Ratio 2.06 Ratio; Globulin 2.3 g/dL (1.6-3.3); Glucose 106 mg/dL (70-110); LDL Cholesterol,Calculated 36.1 mg/dL (0.0-131.0); Potassium 5.5 mmol/L (3.5-5.5); Sodium 140 mmol/L (135-145); Total Bilirubin 0.4 mg/dL (0.3-1.2); Total Protein 6.3 g/dL (6.2-8.2)
== END | disposition home or self-care (01) ==
LOC: LABWHC1 11:36
PROVIDERS: ATTEND Internal Medicine Interventional Cardiology
DX: E78.2 Mixed hyperlipidemia (principal)
CPT/HCPCS: 36415; 80053; 80061

== ENCOUNTER 2024-09-22 15:26 | Inpatient (IN) | payer MEDICARE, OTHER ==
[2024-09-22 15:33] LABS: Glucose,Whole Blood 158 mg/dL (70-110)
--- NOTE | 2024-09-22 15:53 | XR ---
EXAMINATION TYPE: XR pelvis AP view DATE OF EXAM: 09/22/2024 3:44 PM COMPARISON: None. CLINICAL INDICATION: Male, 83 years old with history of Trauma, pain TECHNIQUE: XR pelvis AP view views were obtained FINDINGS: No evidence for fracture, dislocation or bony lesion. Joint spaces are well-preserved. S I joints appear symmetric. IMPRESSION: No acute fracture or dislocation seen. [facility], , 09/22/2024 3:51 PM
--- NOTE | 2024-09-22 15:54 | XR ---
EXAMINATION TYPE: XR chest 1V portable DATE OF EXAM: 09/22/2024 3:44 PM COMPARISON: 08/06/2013 CLINICAL INDICATION: Male, 83 years old with history of trauma, TECHNIQUE: XR chest 1V portable views of the chest are obtained. FINDINGS: Demonstrated are scattered senescent parenchymal change. There is no evidence for focal infiltrate. The heart is stable. Hilar and mediastinal structures are within normal limits. Degenerative changes are seen of the dorsal spine. IMPRESSION: 1. Chronic changes without evidence for acute pulmonary disease. [facility], , 09/22/2024 3:52 PM
[2024-09-22 16:00] LABS: Glucose,Whole Blood 114 mg/dL (70-110)
[2024-09-22] MEDS: SODIUM CHLORIDE 0.9% 1,000 ML IV STA (16:01)
[2024-09-22] MEDS: DIPH,PERTUS(ACELL)TETVAC-LF 0.5 ML VIAL IM ONE (16:01)
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
[2024-09-22 16:20] LABS: Basophils # (A) 0.08 10*3/uL (0.00-0.10); Basophils % (A) 0.6 %; Eosinophils # (A) 0.35 10*3/uL (0.04-0.35); Eosinophils % (A) 2.6 %; HCT 31.0 % (39.6-50.0); HGB 10.4 g/dL (13.0-17.0); Lymphocytes # (A) 1.50 10*3/uL (0.90-5.00); Lymphocytes % (A) 11.1 %; MCH 30.1 pg (27.0-32.0); MCHC 33.5 g/dL (32.0-37.0); MCV 89.6 fL (80.0-97.0); Monocytes # (A) 0.90 10*3/uL (0.20-1.00); Monocytes % (A) 6.7 %; Neutrophils # (A) 10.49 10*3/uL (1.80-7.70); Neutrophils % (A) 77.5 %; Platelet Count 141 10*3/uL (140-440); RBC 3.46 10*6/uL (4.40-5.60); RDW 14.1 % (11.5-14.5); WBC 13.52 10*3/uL (4.50-10.00)
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
[2024-09-22] MEDS: MORPHINE SULFATE 2 MG/ML SYRINGE IVP STA (16:24)
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
[2024-09-22 16:29] LABS: INR 1.2 (<1.2); Partial Thromboplastin Time 22.3 sec (22.0-30.0); Prothrombin Time 12.4 sec (10.0-12.5)
[2024-09-22 16:30] LABS: Lactic Acid, Venous 1.2 mmol/L (0.7-2.0)
[2024-09-22 16:32] LABS: ALT 30 U/L (4-49); AST 43 U/L (17-59); African American GFR (CKD) 55 (>60 ml/min/1.73 sqM); Albumin 3.2 g/dL (3.5-5.0); Alkaline Phosphatase 55 U/L (38-126); Anion Gap 5 mmol/L; Blood Urea Nitrogen 31 mg/dL (9-20); Calcium 8.1 mg/dL (8.4-10.2); Carbon Dioxide 25 mmol/L (22-30); Chloride 109 mmol/L (98-107); Glucose 116 mg/dL (74-99); Non-African American GFR(CKD) 47 (>60 ml/min/1.73 sqM); Potassium 5.0 mmol/L (3.5-5.1); Sodium 139 mmol/L (137-145); Total Protein 5.3 g/dL (6.3-8.2)
[2024-09-22 16:53] LABS: Glucose,Whole Blood 94 mg/dL (70-110)
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
[2024-09-22] MEDS: ONDANSETRON 4 MG/2 ML VIAL IVP STA (17:11)
[2024-09-22] MEDS ORDERED: NALOXONE 0.4 MG/ML 1 ML VIAL IV PRN (17:57)
[2024-09-22] MEDS ORDERED: ONDANSETRON 4 MG/2 ML VIAL IVP PRN (17:57)
[2024-09-22] MEDS: KETOROLAC 15 MG/ML 1 ML VIAL IVP STA (18:02)
[2024-09-22] MEDS: MORPHINE SULFATE 4 MG/ML SYRINGE IVP STA (18:04)
[2024-09-22] MEDS: METOCLOPRAMIDE 5 MG/ML 2 ML VIAL IVP STA (18:05)
[2024-09-22 18:24] LABS: Glucose,Whole Blood 82 mg/dL (70-110)
[2024-09-22] MEDS ORDERED: BACITRACIN ZINC 500 UNIT/GM OINT 28.4 GM TUBE TOPICAL ONE (18:31)
[2024-09-22] MEDS: SODIUM CHLORIDE 0.9% 1,000 ML IV SCH (18:48)
[2024-09-22] MEDS: TOPICAL SKIN ADHESIVE 1 EACH AMP TOPICAL ONE (18:51)
[2024-09-22] MEDS: BACITRACIN OINT 1 EACH PACKET TOPICAL ONE (18:54)
[2024-09-22 19:48] LABS: Glucose,Whole Blood 112 mg/dL (70-110)
[2024-09-22 22:16] LABS: Glucose,Whole Blood 101 mg/dL (70-110)
[2024-09-23] MEDS ORDERED: ONDANSETRON 4 MG/2 ML VIAL IVP PRN
[2024-09-23] MEDS: VIT A,C & E-LUTEIN-MINERALS 1 EACH TAB PO SCH (01:15)
[2024-09-23] MEDS: TIMOLOL 0.5% OPHTH DROPS 5 ML BTL BOTH EYES SCH (01:15)
[2024-09-23] MEDS: LATANOPROST 0.005% OPHTH DROPS 2.5 ML BTL BOTH EYES SCH (01:51)
[2024-09-23 03:42] LABS: Bilirubin,Urine Negative (Negative); Blood,Urine Negative (Negative); Color,Urine Light Yellow; Glucose,Urine (UA) Negative (Negative); Ketones,Urine Negative (Negative); Leukocyte Esterase,Urine Negative (Negative); Nitrite,Urine Negative (Negative); PH, Urine 5.0 (5.0-8.0); Protein,Urine Negative (Negative); Urobilinogen,Urine <2.0 mg/dL (<2.0)
[2024-09-23 04:03] LABS: Specific Gravity,Urine 1.046 (1.001-1.035)
[2024-09-23 04:47] LABS: Barbiturate Screen,Urine Not Detected (NotDetected); Benzodiazepines Screen,Urine Not Detected (NotDetected); Opiate Screen,Urine Detected (NotDetected); Oxycodone Screen, Urine Not Detected (NotDetected); Phencyclidine Screen,Urine Not Detected (NotDetected); Tricyclic Antidepressant,Urine Not Detected (NotDetected); Urn Cannabinoid Scrn Not Detected (NotDetected)
[2024-09-23 06:07] LABS: Glucose,Whole Blood 61 mg/dL (70-110)
[2024-09-23] MEDS ORDERED: DEXTROSE 50% SYRINGE 50 ML IVP PRN ×4 (06:16→10:52)
[2024-09-23 06:19] LABS: Glucose,Whole Blood 64 mg/dL (70-110)
[2024-09-23] MEDS: KETOROLAC 15 MG/ML 1 ML VIAL IVP PRN (06:22)
[2024-09-23] MEDS: INSULIN GLARGINE (LANTUS) 100 UNIT/ML SYR SQ SCH (06:27)
[2024-09-23 06:41] LABS: Glucose,Whole Blood 101 mg/dL (70-110)
[2024-09-23] MEDS: INSULIN LISPRO (HumaLOG) 100 UNIT/ML 10 mL VL SQ SCH ×2 (07:10→13:01)
[2024-09-23 08:20] LABS: HCT 31.4 % (39.6-50.0); HGB 10.0 g/dL (13.0-17.0); Lymphocytes % (A) 13.8 %; MCH 29.1 pg (27.0-32.0); MCHC 31.8 g/dL (32.0-37.0); MCV 91.3 FL (80.0-97.0); Monocytes % (A) 12.4 %; NRBC Per 100 WBC 0 X 10*3/uL (0.00-0.01); Neutrophils % (A) 72.7 %; Platelet Count 137 X 10*3/uL (140-440); RBC 3.44 X 10*6/uL (4.40-5.60); RDW 14.6 % (11.5-14.5); WBC 9.90 X 10*3/uL (4.50-10.00)
[2024-09-23 08:21] LABS: Basophils # (A) 0.03 X 10*3/uL (0.00-0.10); Basophils % (A) 0.3 %; Eosinophils # (A) 0.04 X 10*3/uL (0.04-0.35); Eosinophils % (A) 0.4 %; Immature Grans, Automated 0.40 %; Lymphocytes # (A) 1.37 X 10*3/uL (0.90-5.00); Monocytes # (A) 1.23 X 10*3/uL (0.20-1.00); Neutrophils # (A) 7.19 X 10*3/uL (1.80-7.70)
[2024-09-23 08:34] LABS: ALT 41 U/L (10-49); AST 81 U/L (14-35); Albumin 3.5 g/dL (3.8-4.9); Albumin/Globulin Ratio 1.75 Ratio (1.60-3.17); Alkaline Phosphatase 51 U/L (41-126); Anion Gap 12.70 mmol/L (4.00-12.00); BUN/Creat Ratio 20.06 Ratio (12.00-20.00); Blood Urea Nitrogen 32.1 mg/dL (9.0-27.0); Calcium 8.4 mg/dL (8.7-10.3); Carbon Dioxide 19.3 mmol/L (21.6-31.8); Chloride 109 mmol/L (96-109); Globulin 2.0 g/dL (1.6-3.3); Glucose 79 mg/dL (70-110); Potassium 5.2 mmol/L (3.5-5.5); Sodium 141 mmol/L (135-145); Total Protein 5.5 g/dL (6.2-8.2)
[2024-09-23] MEDS: ATORVASTATIN 40 MG TAB PO SCH (08:59)
[2024-09-23] MEDS: ASPIRIN 81 MG PO SCH (08:59)
[2024-09-23 12:07] LABS: Glucose,Whole Blood 145 mg/dL (70-110)
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
[2024-09-23] MEDS: HYDROmorphone 0.5 MG/0.5 ML SYRINGE IVP PRN (15:56)
[2024-09-23] MEDS: PANTOPRAZOLE 40 MG/10 ML VIAL IVP SCH (16:36)
[2024-09-23] MEDS: TAMSULOSIN 0.4 MG CAP.ER.24H PO SCH (16:37)
[2024-09-23] MEDS: HEPARIN SODIUM,PORCINE 5,000 UNIT/ML 1 ML VIAL SQ SCH (16:37)
[2024-09-23 17:12] LABS: Glucose,Whole Blood 131 mg/dL (70-110)
[2024-09-23 20:40] LABS: Glucose,Whole Blood 246 mg/dL (70-110)
[2024-09-23 21:54] LABS: Glucose,Whole Blood 246 mg/dL (70-110)
[2024-09-24 06:16] LABS: Glucose,Whole Blood 189 mg/dL (70-110)
[2024-09-24] MEDS: INSULIN GLARGINE (LANTUS) 100 UNIT/ML SYR SQ SCH (06:28)
[2024-09-24 07:48] LABS: Basophils # (A) 0.03 X 10*3/uL (0.00-0.10); Basophils % (A) 0.4 %; Eosinophils # (A) 0.31 X 10*3/uL (0.04-0.35); Eosinophils % (A) 4.1 %; HCT 25.4 % (39.6-50.0); HGB 8.2 g/dL (13.0-17.0); Immature Grans, Automated 0.40 %; Lymphocytes # (A) 1.48 X 10*3/uL (0.90-5.00); Lymphocytes % (A) 19.6 %; MCH 29.8 pg (27.0-32.0); MCHC 32.3 g/dL (32.0-37.0); MCV 92.4 FL (80.0-97.0); Monocytes # (A) 1.04 X 10*3/uL (0.20-1.00); Monocytes % (A) 13.7 %; NRBC Per 100 WBC 0 X 10*3/uL (0.00-0.01); Neutrophils # (A) 4.68 X 10*3/uL (1.80-7.70); Neutrophils % (A) 61.8 %; Platelet Count 115 X 10*3/uL (140-440); RBC 2.75 X 10*6/uL (4.40-5.60); RDW 14.8 % (11.5-14.5); WBC 7.57 X 10*3/uL (4.50-10.00)
[2024-09-24] MEDS: HYDROcodone/APAP 5-325MG 1 EACH TAB PO PRN (08:08)
[2024-09-24 08:11] LABS: Anion Gap 9.80 mmol/L (4.00-12.00); BUN/Creat Ratio 21.61 Ratio (12.00-20.00); Blood Urea Nitrogen 38.9 mg/dL (9.0-27.0); Calcium 7.9 mg/dL (8.7-10.3); Carbon Dioxide 21.2 mmol/L (21.6-31.8); Chloride 108 mmol/L (96-109); Glucose 187 mg/dL (70-110); Potassium 4.6 mmol/L (3.5-5.5); Sodium 139 mmol/L (135-145)
[2024-09-24 11:40] LABS: Glucose,Whole Blood 199 mg/dL (70-110)
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
[2024-09-24 17:04] LABS: Glucose,Whole Blood 151 mg/dL (70-110)
[2024-09-24 20:12] LABS: Glucose,Whole Blood 183 mg/dL (70-110)
[2024-09-25 05:59] LABS: HCT 21.8 % (39.6-50.0); MCH 30.7 pg (27.0-32.0); MCHC 33.9 g/dL (32.0-37.0); MCV 90.5 fL (80.0-97.0); Platelet Count 112 10*3/uL (140-440); RBC 2.41 10*6/uL (4.40-5.60); RDW 14.2 % (11.5-14.5); WBC 6.34 10*3/uL (4.50-10.00)
[2024-09-25 06:08] LABS: African American GFR (CKD) 54 (>60 ml/min/1.73 sqM); Anion Gap 6 mmol/L; Blood Urea Nitrogen 35 mg/dL (9-20); Calcium 8.3 mg/dL (8.4-10.2); Carbon Dioxide 21 mmol/L (22-30); Chloride 109 mmol/L (98-107); Glucose 93 mg/dL (74-99); Non-African American GFR(CKD) 47 (>60 ml/min/1.73 sqM); Potassium 4.3 mmol/L (3.5-5.1); Sodium 136 mmol/L (137-145)
[2024-09-25 06:19] LABS: HGB 7.4 g/dL (13.0-17.0)
[2024-09-25 06:40] LABS: Glucose,Whole Blood 111 mg/dL (70-110)
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
[2024-09-25 11:49] LABS: Glucose,Whole Blood 179 mg/dL (70-110)
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
[2024-09-25 17:10] LABS: Glucose,Whole Blood 155 mg/dL (70-110)
[2024-09-25 20:03] LABS: Glucose,Whole Blood 153 mg/dL (70-110)
[2024-09-26 06:23] LABS: Glucose,Whole Blood 137 mg/dL (70-110)
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
[2024-09-26 11:39] LABS: Glucose,Whole Blood 204 mg/dL (70-110)
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
[2024-09-26 16:18] LABS: Glucose,Whole Blood 165 mg/dL (70-110)
[2024-09-26 20:34] LABS: Glucose,Whole Blood 150 mg/dL (70-110)
[2024-09-27 06:31] LABS: Glucose,Whole Blood 139 mg/dL (70-110)
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
[2024-09-27 12:00] LABS: Glucose,Whole Blood 137 mg/dL (70-110)
[2024-09-27 20:16] LABS: Glucose,Whole Blood 189 mg/dL (70-110)
[2024-09-28 06:09] LABS: Glucose,Whole Blood 159 mg/dL (70-110)
[2024-09-28 11:15] LABS: African American GFR (CKD) 57 (>60 ml/min/1.73 sqM); Anion Gap 13 mmol/L; Blood Urea Nitrogen 27 mg/dL (9-20); Calcium 9.7 mg/dL (8.4-10.2); Carbon Dioxide 19 mmol/L (22-30); Chloride 105 mmol/L (98-107); Glucose 144 mg/dL (74-99); Non-African American GFR(CKD) 49 (>60 ml/min/1.73 sqM); Sodium 137 mmol/L (137-145)
[2024-09-28 11:22] LABS: Potassium 6.3 mmol/L (3.5-5.1)
[2024-09-28 11:26] LABS: HCT 23.6 % (39.6-50.0); HGB 8.0 g/dL (13.0-17.0); MCH 30.4 pg (27.0-32.0); MCHC 33.9 g/dL (32.0-37.0); MCV 89.7 fL (80.0-97.0); Platelet Count 154 10*3/uL (140-440); RBC 2.63 10*6/uL (4.40-5.60); RDW 15.3 % (11.5-14.5); WBC 10.18 10*3/uL (4.50-10.00)
[2024-09-28 11:41] LABS: Glucose,Whole Blood 149 mg/dL (70-110)
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
[2024-09-28 17:07] LABS: Glucose,Whole Blood 124 mg/dL (70-110)
[2024-09-28 20:39] LABS: Glucose,Whole Blood 163 mg/dL (70-110)
[2024-09-29 06:07] LABS: Glucose,Whole Blood 134 mg/dL (70-110)
[2024-09-29 11:17] LABS: Glucose,Whole Blood 140 mg/dL (70-110)
[2024-09-29 12:53] VITALS: BMI 34.4
[2024-09-29 14:28] VITALS: BP 123/68; PULSE 94; RESP 18; TEMP 98
== END 2024-09-29 15:22 | disposition home health service (06) | DRG 552 ==
LOC: EC 15:26 → 4SSUR 18:00
PROVIDERS: ADMIT Surgery; ATTEND Surgery
DX: S12.600A Unspecified displaced fracture of seventh cervical vertebra, initial encounter for closed fracture (principal); S22.019A Unspecified fracture of first thoracic vertebra, initial encounter for closed fracture; N17.9 Acute kidney failure, unspecified; S81.012A Laceration without foreign body, left knee, initial encounter; C67.9 Malignant neoplasm of bladder, unspecified; D64.9 Anemia, unspecified; E11.22 Type 2 diabetes mellitus with diabetic chronic kidney disease; E11.649 Type 2 diabetes mellitus with hypoglycemia without coma; E66.01 Morbid (severe) obesity due to excess calories; N18.30 Chronic kidney disease, stage 3 unspecified; I12.9 Hypertensive chronic kidney disease with stage 1 through stage 4 chronic kidney disease, or unspecified chronic kidney disease; Z79.4 Long term (current) use of insulin; R33.9 Retention of urine, unspecified; H40.9 Unspecified glaucoma; M19.90 Unspecified osteoarthritis, unspecified site; S00.83XA Contusion of other part of head, initial encounter; S30.1XXA Contusion of abdominal wall, initial encounter; V47.5XXA Car driver injured in collision with fixed or stationary object in traffic accident, initial encounter; Y92.410 Unspecified street and highway as the place of occurrence of the external cause; Z68.35 Body mass index [BMI] 35.0-35.9, adult; Z79.82 Long term (current) use of aspirin; Z79.84 Long term (current) use of oral hypoglycemic drugs; Z79.899 Other long term (current) drug therapy; Z87.891 Personal history of nicotine dependence
CPT/HCPCS: 36415; 70450; 70486; 71045; 71260; 72125; 72129; 72132; 72170; 74177; 80048; 80053; 80306; 80320; 81003; 82140; 83036; 83605; 84132; 84484; 85025; 85027; 85610; 85730; 86850; 86900; 86901; 90471; 90715; 93005; 96361; 96365; 96375; 99291